=== PATIENT | male | born 1960 | race Caucasian/White ===

== ENCOUNTER 2017-07-20 10:38 | Inpatient (IN) | payer OTHER ==
[~2017-07-20] VITALS: Ht 162.6 cm; Wt 96.7 kg
[2017-07-20] MEDS ORDERED: ACETAMINOPHEN325 M1 PO (15:05)
[2017-07-20] MEDS ORDERED: LIPITOR80 MG PO (15:06)
[2017-07-20] MEDS ORDERED: COREG12.5 M1 PO (15:07)
[2017-07-20] MEDS ORDERED: DULCOLAX10 MG PR (15:07)
[2017-07-20] MEDS ORDERED: PLAVIX75 MG PO (15:08)
[2017-07-20] MEDS ORDERED: B-121000 MC2 PO (15:10)
[2017-07-20] MEDS ORDERED: COLACE100 MG PO (15:11)
[2017-07-20] MEDS ORDERED: DEXTROSE 25% IV (15:11)
[2017-07-20] MEDS ORDERED: FAMOTIDINE20 MG PO (15:12)
[2017-07-20] MEDS ORDERED: ZETIA10 MG PO (15:12)
[2017-07-20] MEDS ORDERED: FOLIC ACID0.8 MG PO (15:12)
[2017-07-20] MEDS ORDERED: GLUCAGON HCL1 MG IM (15:13)
[2017-07-20] MEDS ORDERED: HEPARIN SO5000 UNIT4 SC (15:14)
[2017-07-20] MEDS ORDERED: GLUCOSE GEL38 GM PO (15:14)
[2017-07-20] MEDS ORDERED: NOVOLOG PE100 UNITS/ SC (15:16)
[2017-07-20] MEDS ORDERED: LEVEMIR100 UNIT/2 SC (15:17)
[2017-07-20] MEDS ORDERED: PERCOCET 5/31 TABLET PO (15:18)
[2017-07-20] MEDS ORDERED: DIOVAN320 MG PO (15:18)
[2017-07-20] MEDS ORDERED: LOVAZA1 GM PO (15:18)
[2017-07-20 15:53] VITALS: BP 142/67
[2017-07-21 00:47] VITALS: BP 174/72
[2017-07-21 02:23] VITALS: BP 140/68
[2017-07-21 05:32] VITALS: BP 144/67
[2017-07-21 05:50] LABS: HEMATOCRIT 36.2 % (38.0-50.0); HEMOGLOBIN 12.3 G/DL (12.5-16.6); MCH 28.3 PG (29.0-34.0); MCV 83.2 FL (86-99); PLATELET COUNT 222 K/uL (156-360); RBC DIS.WIDTH-SD 39.6 % (39-53); RED BLOOD COUNT 4.35 M/uL (4.00-5.50); WHITE BLOOD COUNT 11.8 K/uL (4.1-10.2)
[2017-07-21 06:32] LABS: ALBUMIN 3.2 G/DL (3.2-4.8); ALKALINE PHOSPHATASE 76 IU/L (3-129); ALT (GPT) 21 IU/L (3-49); AST (GOT) 20 IU/L (2-34); CHLORIDE 101 MEQ/L (99-109); CREATININE 1.2 MG/DL (0.6-1.3); GFR ESTIMATE (CALCULATED) > 59 mL/min/ (58.99-99999); GLUCOSE 169 mg/dL (70-99); POTASSIUM 4.1 MEQ/L (3.7-5.4); SODIUM 139 MEQ/L (136-147); TOTAL BILIRUBIN 0.8 MG/DL (0.0-1.0); TOTAL PROTEIN 5.3 G/DL (6.4-8.3); UREA NITROGEN (BUN) 23 mg/dL (9-23)
[2017-07-21 15:37] VITALS: BP 144/65
[2017-07-22 04:44] VITALS: BP 156/72
[2017-07-22 15:02] VITALS: BP 108/56
[2017-07-23 05:23] VITALS: BP 168/77
[2017-07-23 15:21] VITALS: BP 113/55
[2017-07-24 06:51] VITALS: BP 184/87
[2017-07-24 09:41] VITALS: BP 160/76
[2017-07-24 11:44] VITALS: BP 167/75
[2017-07-24 16:13] VITALS: BP 151/72
[2017-07-25 05:38] VITALS: BP 172/81
[2017-07-25 09:04] VITALS: BP 163/72
[2017-07-25 10:36] LABS: HEMOGLOBIN 12.2 G/DL (12.5-16.6); MCH 28.4 PG (29.0-34.0); MCHC 33.9 G/DL (30.0-36.0); MCV 83.7 FL (86-99); PLATELET COUNT 249 K/uL (156-360); RBC DIS.WIDTH-SD 39.7 % (39-53); WHITE BLOOD COUNT 8.3 K/uL (4.1-10.2)
[2017-07-25 11:07] LABS: ALBUMIN 3.2 G/DL (3.2-4.8); ALKALINE PHOSPHATASE 80 IU/L (3-129); ALT (GPT) 33 IU/L (3-49); CHLORIDE 102 MEQ/L (99-109); CREATININE 0.9 MG/DL (0.6-1.3); GFR ESTIMATE (CALCULATED) > 59 mL/min/ (58.99-99999); GLUCOSE 189 mg/dL (70-99); POTASSIUM 4.2 MEQ/L (3.7-5.4); SODIUM 139 MEQ/L (136-147); TOTAL PROTEIN 5.4 G/DL (6.4-8.3); UREA NITROGEN (BUN) 18 mg/dL (9-23)
[2017-07-25 11:13] LABS: AST (GOT) 31 IU/L (2-34); TOTAL BILIRUBIN 0.5 MG/DL (0.0-1.0)
[2017-07-25 15:44] VITALS: BP 147/62
[2017-07-26 04:50] VITALS: BP 168/78
[2017-07-26 05:41] LABS: BASOPHIL (%) 0.8 % (0-1); BASOPHIL COUNT 0.1 K/uL (0-0.1); EOSINOPHIL (%) 2.4 % (0-5); EOSINOPHIL COUNT 0.2 K/uL (0-0.3); HEMATOCRIT 38.2 % (38.0-50.0); HEMOGLOBIN 12.7 G/DL (12.5-16.6); IMMATURE GRANULOCYTE (%) 0.4 % (0.0-0.7); LYMPHOCYTE (%) 28.3 % (15-42); LYMPHOCYTE COUNT 2.6 K/uL (1.0-2.8); MCH 27.6 PG (29.0-34.0); MCHC 33.2 G/DL (30.0-36.0); MONOCYTE (%) 8.6 % (3-12); MONOCYTE COUNT 0.8 K/uL (0-0.8); NEUTROPHIL (%) 59.5 % (45-76); NEUTROPHIL COUNT 5.5 K/uL (1.8-6.4); PLATELET COUNT 257 K/uL (156-360); RBC DIS.WIDTH-CV 12.8 % (11.8-14.6); RBC DIS.WIDTH-SD 38.7 % (39-53); WHITE BLOOD COUNT 9.2 K/uL (4.1-10.2)
[2017-07-26 06:09] LABS: CHLORIDE 105 MEQ/L (99-109); CREATININE 0.9 MG/DL (0.6-1.3); GFR ESTIMATE (CALCULATED) > 59 mL/min/ (58.99-99999); GLUCOSE 131 mg/dL (70-99); POTASSIUM 4.3 MEQ/L (3.7-5.4); SODIUM 141 MEQ/L (136-147); UREA NITROGEN (BUN) 14 mg/dL (9-23)
[2017-07-26 12:13] VITALS: BP 137/66
[2017-07-26 15:28] VITALS: BP 132/67
[2017-07-26 16:00] VITALS: BP 118/54
[2017-07-27 06:18] VITALS: BP 160/75
[2017-07-27 15:28] VITALS: BP 112/55
[2017-07-28 06:17] VITALS: BP 148/69
[2017-07-28 15:15] VITALS: BP 119/57
[2017-07-28 20:58] VITALS: BP 148/67
[2017-07-29 05:55] VITALS: BP 143/65
[2017-07-29 15:55] VITALS: BP 120/59
[2017-07-30 06:09] VITALS: BP 153/70
[2017-07-30 15:30] VITALS: BP 127/62
[2017-07-31 05:44] VITALS: BP 166/75
[2017-07-31 15:16] VITALS: BP 125/65
[2017-08-01 05:17] VITALS: BP 150/68
[2017-08-01 15:25] VITALS: BP 120/57
[2017-08-02 04:39] VITALS: BP 153/97
[2017-08-02 15:50] VITALS: BP 106/55
[2017-08-03 06:30] VITALS: BP 160/80
[2017-08-03 16:09] VITALS: BP 129/36
[2017-08-04 04:36] VITALS: BP 162/82
[2017-08-04 14:28] VITALS: BP 134/61
[2017-08-05 05:30] VITALS: BP 164/74
[2017-08-05 15:16] VITALS: BP 122/59
[2017-08-06 05:23] VITALS: BP 135/64
[2017-08-06 15:55] VITALS: BP 103/57
[2017-08-07 05:55] VITALS: BP 156/72
[2017-08-07 16:05] VITALS: BP 114/56
[2017-08-08 05:52] VITALS: BP 154/77
[2017-08-08 16:28] VITALS: BP 118/56
[2017-08-09 05:52] VITALS: BP 147/74
[2017-08-09 15:49] VITALS: BP 131/74
[2017-08-10 04:57] VITALS: BP 144/63
[2017-08-10 15:17] VITALS: BP 115/57
[2017-08-11 05:11] VITALS: BP 149/70
[2017-08-11 16:19] VITALS: BP 131/63
[2017-08-12 06:28] VITALS: BP 148/69
[2017-08-12 15:32] VITALS: BP 110/55
[2017-08-13 05:40] VITALS: BP 134/64
[2017-08-13 15:07] VITALS: BP 116/59
[2017-08-14 05:25] VITALS: BP 140/68
[2017-08-14 15:24] VITALS: BP 138/69
[2017-08-15 05:22] VITALS: BP 151/70
[2017-08-15 15:07] VITALS: BP 132/60
[2017-08-16 06:15] VITALS: BP 156/72
[2017-08-16 10:19] LABS: HEMOGLOBIN A1c (GLYCOHEMOGLOB) 7.7 % (Below 5.7)
[2017-08-16 16:14] VITALS: BP 127/60
[2017-08-17 05:27] VITALS: BP 169/77
[2017-08-17 07:13] VITALS: BP 136/78
[2017-08-17 15:23] VITALS: BP 140/66
[2017-08-17 18:55] VITALS: BP 185/86
[2017-08-17 19:27] VITALS: BP 140/73
[2017-08-17 23:49] VITALS: BP 138/71
[2017-08-18 04:17] VITALS: BP 134/63
[2017-08-18 06:24] LABS: HEMATOCRIT 33.4 % (38.0-50.0); HEMOGLOBIN 11.5 G/DL (12.5-16.6); MCH 29.1 PG (29.0-34.0); MCHC 34.4 G/DL (30.0-36.0); MCV 84.6 FL (86-99); RBC DIS.WIDTH-CV 13.5 % (11.8-14.6); RBC DIS.WIDTH-SD 41.8 % (39-53); RED BLOOD COUNT 3.95 M/uL (4.00-5.50); WHITE BLOOD COUNT 7.3 K/uL (4.1-10.2)
[2017-08-18 06:44] LABS: ALBUMIN 3.4 G/DL (3.2-4.8); ALKALINE PHOSPHATASE 64 IU/L (3-129); ALT (GPT) 24 IU/L (3-49); AST (GOT) 16 IU/L (2-34); CHLORIDE 107 MEQ/L (99-109); CREATININE 0.9 MG/DL (0.6-1.3); GFR ESTIMATE (CALCULATED) > 59 mL/min/ (58.99-99999); GLUCOSE 113 mg/dL (70-99); POTASSIUM 3.9 MEQ/L (3.7-5.4); SODIUM 143 MEQ/L (136-147); TOTAL BILIRUBIN 0.6 MG/DL (0.0-1.0); TOTAL PROTEIN 5.5 G/DL (6.4-8.3); UREA NITROGEN (BUN) 15 mg/dL (9-23)
[2017-08-18 06:54] LABS: PLAT.SUFFICIENCY ADEQUATE
[2017-08-18 07:01] LABS: PLATELET COUNT 173 K/uL (156-360)
[2017-08-18] MEDS ORDERED: AMLODIPINE BESY10 MG PO (12:04)
[2017-08-18] MEDS ORDERED: TAMSULOSIN HCL0.4 MG PO (12:04)
[2017-08-18] MEDS ORDERED: NOVOLOG 10100 UNITS/ SC (12:04)
[2017-08-18] MEDS ORDERED: VALSARTAN160 MG PO (12:04)
[2017-08-18] MEDS ORDERED: LEVEMIR100 UNIT/2 SC (12:04)
[2017-08-18] MEDS ORDERED: ASPIR-LOW81 MG PO (12:04)
[2017-08-18 15:38] VITALS: BP 133/64
== END 2017-08-18 15:45 | DRG 57 ==
LOC: 3WEST 10:38 → ENPENDDIS 08-18 → 3WEST 08-18 15:45
PROVIDERS: Hospitalist; Internal Medicine; Physical Medicine & Rehabilitation Pain Medicine; Psychiatry & Neurology Neurology
PROC: F07M0ZZ Range of Motion and Joint Mobility Treatment of Musculoskeletal System - Whole Body (ICD-10-PCS; principal; 2017-07-20)
DX: I69.351 Hemiplegia and hemiparesis following cerebral infarction affecting right dominant side (principal); I69.328 Other speech and language deficits following cerebral infarction; R47.81 Slurred speech; R26.9 Unspecified abnormalities of gait and mobility; R33.9 Retention of urine, unspecified; E11.65 Type 2 diabetes mellitus with hyperglycemia; R51 Headache; F43.20 Adjustment disorder, unspecified; K59.00 Constipation, unspecified; I25.10 Atherosclerotic heart disease of native coronary artery without angina pectoris; D64.9 Anemia, unspecified; D72.829 Elevated white blood cell count, unspecified; I10 Essential (primary) hypertension; K80.20 Calculus of gallbladder without cholecystitis without obstruction; E78.5 Hyperlipidemia, unspecified; M54.5 Low back pain; F32.9 Major depressive disorder, single episode, unspecified; R45.87 Impulsiveness; I25.2 Old myocardial infarction; E66.9 Obesity, unspecified; Z68.36 Body mass index [BMI] 36.0-36.9, adult; Z79.02 Long term (current) use of antithrombotics/antiplatelets; Z95.1 Presence of aortocoronary bypass graft; Z79.82 Long term (current) use of aspirin; Z79.4 Long term (current) use of insulin; Z82.49 Family history of ischemic heart disease and other diseases of the circulatory system; Z82.3 Family history of stroke; Z83.3 Family history of diabetes mellitus; Z87.891 Personal history of nicotine dependence
CPT/HCPCS: 70450; 74018; 80048; 80053; 82948; 83036; 85025; 85027; 92523 GN; 92610 GN; 97110 GO; 97112 GO; 97530 GP; J1644; J1815